=== PATIENT | male | born 1965 | race Hispanic/Latino ===

== ENCOUNTER 2021-09-11 15:36 | Emergency (ER) | payer BC ==
[~2021-09-11] VITALS: Ht 172.7 cm; Wt 87.7 kg
[2021-09-11] MEDS ORDERED: KEFLEX500 MG PO (17:53)
[2021-09-11 18:16] VITALS: BP 137/87
== END 2021-09-11 18:16 | disposition home or self-care (01) | DRG 914 ==
LOC: ED 15:36
PROC: 0HQLXZZ Repair Left Lower Leg Skin, External Approach (ICD-10-PCS; principal; 2021-09-11)
DX: S81.822A Laceration with foreign body, left lower leg, initial encounter (principal); W29.3XXA Contact with powered garden and outdoor hand tools and machinery, initial encounter; Y93.H9 Activity, other involving exterior property and land maintenance, building and construction; Y92.007 Garden or yard of unspecified non-institutional (private) residence as the place of occurrence of the external cause